=== PATIENT | male | born 1975 | race African-American/Black ===

== ENCOUNTER 2022-06-29 12:34 | Emergency (ER) | payer OTHER ==
[2022-06-29 13:17] LABS: CHLORIDE,CL 106 mmol/L (98-107); SODIUM,NA 144 mmol/L (136-145)
[2022-06-29 13:20] LABS: ANION GAP 15.5 mmol/L (5-15); ESTIMATED GFR 95 mL/min (>=60)
[2022-06-29] MEDS ORDERED: Furosemide 40 MG/4 ML VIAL IV ONE (13:32)
== END 2022-06-29 15:03 | disposition home or self-care (01) ==
LOC: VM.ED 12:34
DX: R06.02 Shortness of breath (principal); I50.9 Heart failure, unspecified; Z88.0 Allergy status to penicillin; Z79.02 Long term (current) use of antithrombotics/antiplatelets
CPT/HCPCS: 71046; 80053; 83880; 84484; 85025; 93005; 93010; 96374; 99284; 99285-25; J1940

== ENCOUNTER 2022-08-15 10:32 | Emergency (ER) | payer OTHER ==
[2022-08-15] MEDS ORDERED: Furosemide 40 MG/4 ML VIAL IV ONE (11:07)
[2022-08-15 11:20] LABS: BASOPHILS PERCENT AUTO 0.5 % (0.2-1.2); EOSINOPHILS ABSOLUTE AUTO 0.1 x10^3/uL (0.0-0.5); HEMATOCRIT 39.4 % (40.0-52.0); HEMOGLOBIN 12.9 g/dL (14.0-18.0); IMMATURE GRAN ABSOLUTE AUTO 0.01 x10^3/uL (0.00-0.07); LYMPHOCYTES ABSOLUTE AUTO 2.2 x10^3/uL (1.0-4.8); LYMPHOCYTES PERCENT AUTO 35.9 % (25.0-50.0); MEAN CORPUSCULAR HEMOGLOBIN 24.9 pg (26.0-32.0); MEAN CORPUSCULAR HGB CONC 32.7 g/dL (32.0-36.0); MEAN CORPUSCULAR VOLUME 76.1 fL (78.0-93.0); MONOCYTES ABSOLUTE AUTO 0.5 x10^3/uL (0.0-0.8); MONOCYTES PERCENT AUTO 8.4 % (2.0-11.0); NEUTROPHILS ABSOLUTE AUTO 3.3 x10^3/uL (1.8-7.7); PLATELET COUNT,PLT 184 x10^3/uL (130-400); RED BLOOD CELL COUNT 5.18 x10^6/uL (4.5-6.0); WHITE BLOOD CELL COUNT,WBC 6.2 x10^3/uL (4.0-10.0)
[2022-08-15 11:41] LABS: A/G RATIO 0.88; ALANINE AMINOTRANSFERASE,ALT 30 U/L (16-63); ALBUMIN 3.5 g/dL (3.4-5.0); ALKALINE PHOSPHATASE 97 U/L (46-116); ANION GAP 15.3 mmol/L (5-15); ASPARTATE AMNIOTRANSFERASE,AST 22 U/L (15-37); BILIRUBIN TOTAL 0.5 mg/dL (0.2-1.0); BLOOD UREA NITROGEN,BUN 14 mg/dL (7-18); CALCIUM 8.7 mg/dL (8.5-10.1); CARBON DIOXIDE,CO2 25 mmol/L (21-32); CHLORIDE,CL 109 mmol/L (98-107); CREATININE 1.1 mg/dL (0.70-1.30); ESTIMATED GFR 84 mL/min (>=60); GLUCOSE RANDOM 141 mg/dL (70-99); POTASSIUM,K 4.3 mmol/L (3.5-5.1); PRO B-TYPE NATRIUR PEPT,BNPPRO 2556 pg/mL (<=125); PROTEIN TOTAL,TP 7.5 g/dL (6.4-8.2); SODIUM,NA 145 mmol/L (136-145)
== END 2022-08-15 13:07 | disposition home or self-care (01) ==
LOC: VM.ED 10:32
DX: R06.02 Shortness of breath (principal); I50.9 Heart failure, unspecified; I25.2 Old myocardial infarction; Z88.0 Allergy status to penicillin; Z79.02 Long term (current) use of antithrombotics/antiplatelets
CPT/HCPCS: 71046; 80053; 83880; 85025; 96374; 99284; 99285-25; J1940